=== PATIENT | female | born 2005 | race Caucasian/White ===

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

== ENCOUNTER → 2023-02-15 | Outpatient (REF) | payer OTHER | LOC: M PLALAB 14:16 | PROVIDERS: ATTEND Advanced Practice Midwife | DX: Z34.03 Encounter for supervision of normal first pregnancy, third trimester (principal) ==

== ENCOUNTER 2023-03-13 14:50 | Inpatient (IN) | payer OTHER, MEDICAID ==
[~2023-03-13] VITALS: Ht 165.1 cm; Wt 56.6 kg
[2023-03-13] VITALS (34 sets, daily range): BP systolic 122–168; BP diastolic 70–124
[2023-03-13] MEDS ORDERED: PRENTAB9 PO (15:11)
[2023-03-13] MEDS ORDERED: HOME MED LIST COMPLETE! XX SCH (15:15)
[2023-03-13] MEDS ORDERED: LACTATED RINGER'S 1000 ML IV STA (15:31)
[2023-03-13] MEDS ORDERED: CARBOPROST TROMETHAMINE 250 MCG/ML AMP IM PRN (15:35)
[2023-03-13] MEDS ORDERED: LIDOCAINE 1% MDV 20ML VIAL INFIL PRN (15:35)
[2023-03-13] MEDS ORDERED: OXYTOCIN INJ 10UNITS/ML 1ML VIAL IM PRN (15:35)
[2023-03-13] MEDS ORDERED: TRANEXAMIC ACID INJection 1,000 MG in NS 100 ML IV PRN (15:35)
[2023-03-13] MEDS ORDERED: METHYLERGONOVINE MALEATE 0.2MG/ML 1ML VIAL IM PRN (15:35)
[2023-03-13] MEDS ORDERED: OXYTOCIN DRIP 30 UNITS in IV 1 EA IV PRN (15:35)
[2023-03-13 15:58] LABS: HEMATOCRIT 41.8 % (36.0-47.0); HEMOGLOBIN 14.3 g/dl (12.0-15.5); MEAN CORPUSCULAR HEMOGLOBIN 29.1 pg (27.0-33.0); MEAN CORPUSCULAR HGB CONC 34.2 g/dl (32.0-36.5); MEAN CORPUSCULAR VOLUME 85.1 fl (80.0-96.0); PLATELET COUNT, AUTOMATED 207 10^3/uL (150-450); RED BLOOD COUNT 4.91 10^6/uL (4.00-5.40); WHITE BLOOD COUNT 12.5 10^3/uL (4.0-10.0)
[2023-03-13 16:29] LABS: URIC ACID 7.5 MG/DL (3.1-7.8)
[2023-03-13 16:31] LABS: LDH LACTATE DEHYDROGENASE 225 U/L (120-246)
[2023-03-13 16:32] LABS: ALT/SGPT 19 U/L (7.0-40); AST/SGOT 27 U/L (<34); BILIRUBIN,TOTAL 0.3 MG/DL (0.3-1.2); CREATININE FOR GFR 0.68 MG/DL (0.55-1.30)
[2023-03-13 16:32] LABS: CREATININE,RANDOM URINE 79.3 MG/DL
[2023-03-13] MEDS ORDERED: FENTANYL/ROPIVACAINE/NACL BAG 100 ML EPIDURAL SCH (17:20)
[2023-03-13] MEDS ORDERED: NALOXONE INJ 0.4MG/1ML VIAL IV PRN (17:20)
[2023-03-13] MEDS ORDERED: diphenhydrAMINE 50MG/ML VIAL IV PRN (17:20)
[2023-03-13] MEDS ORDERED: EPIDURAL/PCA KEYS XX PRN (17:20)
[2023-03-13] MEDS ORDERED: LR 500 ML IV PRN (17:20)
[2023-03-13] MEDS ORDERED: ePHEDrine SULFATE 25 MG/5 ML(5MG/ML) SYRINGE IVP PRN (17:20)
[2023-03-13] MEDS ORDERED: ONDANSETRON 4MG 2ML VIAL IV PRN (17:20)
[2023-03-13] MEDS ORDERED: FENTANYL 2MCG/ML ROPIVACAINE 0.2% IN 0.9% NACL 100ML IVBAG As Ordered ONE (17:22)
[2023-03-13 17:25] LABS: TOTAL PROTEIN,RANDOM URINE 30.7 MG/DL (0.0-14.0)
[2023-03-13] MEDS ORDERED: OXYTOCIN DRIP 30 UNITS in IV 1 EA IV SCH (20:25)
[2023-03-13] MEDS ORDERED: DIBUCAINE 1% OINTMENT 30GM TOP PRN (23:25)
[2023-03-13] MEDS ORDERED: ANUSOL HC CREAM 30GM TOP PRN (23:25)
[2023-03-13] MEDS ORDERED: IBUPROFEN 600MG TAB PO PRN (23:25)
[2023-03-13] MEDS ORDERED: ACETAMINOPHEN TAB 650MG DOSE (2X325MG) PO PRN (23:25)
[2023-03-13] MEDS ORDERED: ACETAMINOPHEN 500 MG TAB PO PRN (23:25)
[2023-03-13] MEDS ORDERED: IBUPROFEN 800 MG TAB PO PRN (23:25)
[2023-03-13] MEDS ORDERED: MOM 30ML SUSPENSION UDC PO PRN (23:25)
[2023-03-13] MEDS ORDERED: RHOGAM 300MCG (1500IU) INJ IM SCH (23:25)
[2023-03-13] MEDS ORDERED: DOCUSATE SODIUM 100MG CAPSULE PO PRN (23:25)
[2023-03-14] VITALS (7 sets, daily range): BP systolic 123–141; BP diastolic 82–101; O2SAT 96–98
[2023-03-14] MEDS: PRENATAL VITAMINS CHEWABLE TABLET PO SCH (09:00)
[2023-03-15 02:00] VITALS: BP 137/98; O2SAT 98
[2023-03-15 06:00] VITALS: BP 119/75; O2SAT 97
[2023-03-15] MEDS: PRENATAL VITAMINS CHEWABLE TABLET PO SCH (08:38)
[2023-03-15] MEDS ORDERED: MEASLES,MUMPS,RUBELLA VACCINE INJ (MMR-II) SC.IMMUN ONE (09:00)
[2023-03-15 10:00] VITALS: BP 131/92; O2SAT 98
== END 2023-03-15 14:30 | disposition home or self-care (01) | DRG 807 ==
LOC: M LDO 14:50 → M LDI 15:38 → M OBS 03-14 00:54
PROVIDERS: ADMIT Advanced Practice Midwife; ATTEND Advanced Practice Midwife
PROC: 10E0XZZ Delivery of Products of Conception, External Approach (ICD-10-PCS; principal; 2023-03-13)
PROC: 0HQ9XZZ Repair Perineum Skin, External Approach (ICD-10-PCS; 2023-03-13)
DX: O14.94 Unspecified pre-eclampsia, complicating childbirth (principal); Z37.0 Single live birth; Z3A.39 39 weeks gestation of pregnancy; O70.0 First degree perineal laceration during delivery

== ENCOUNTER → 2023-05-10 | Outpatient (CLI) | payer OTHER ==
[~2023-05-10] MED LIST changes: +PRENTAB9 PO
== END ==
LOC: M RAD 11:10
PROVIDERS: ATTEND Advanced Practice Midwife
DX: N83.202 Unspecified ovarian cyst, left side (principal)

== ENCOUNTER → 2024-10-30 | Outpatient (REF) | payer OTHER | LOC: M PLALAB 15:47 | PROVIDERS: ATTEND Advanced Practice Midwife | DX: Z12.4 Encounter for screening for malignant neoplasm of cervix (principal) ==

== ENCOUNTER → 2024-11-01 | Outpatient (CLI) | payer OTHER ==
[2024-11-01 15:50] LABS: FREE T4 1.15 NG/DL (0.89-1.76)
[2024-11-03 08:38] LABS: DEHYDROEPIANDROSTERONE SULFATE 201 mcg/dL (44-286)
== END ==
LOC: M PLALAB 12:31
PROVIDERS: ATTEND Advanced Practice Midwife
DX: N92.1 Excessive and frequent menstruation with irregular cycle (principal)

== ENCOUNTER → 2024-12-04 | Outpatient (CLI) | payer OTHER | LOC: M WHC 14:18 | PROVIDERS: ATTEND Advanced Practice Midwife | DX: N92.1 Excessive and frequent menstruation with irregular cycle (principal) ==